=== PATIENT | male | born 1995 ===

== ENCOUNTER 2018-04-23 15:46 | Emergency (ER) | payer OTHER ==
[2018-04-23 15:52] VITALS: BP 147/90; PULSE 84; RESP 16; TEMP 98.6; O2SAT 100
--- NOTE | 2018-04-23 16:26 | ED PDOC ---
HPI: Skin/Bite Injury Time Seen by Provider: 04/23/18 16:00 Chief Complaint (Nursing): Abnormal Skin Integrity Chief Complaint (Provider): Abnormal Skin Integrity History Per: Patient History/Exam Limitations: no limitations Onset/Duration Of Symptoms: Days (x 4) Current Symptoms Are (Timing): Still Present Quality Of Symptoms: Draining Additional Complaint(s): 22 year old male with a history of cystic acne presents to the ED a draining abscess on his face. Patient reports a large pimple that is warm and swollen on his face. He visited his PMD and was referred here for further evaluation due to proximity to his eye. Offers no other complaints. PMD: [facility] Past Medical History Reviewed: Historical Data, Nursing Documentation, Vital Signs Vital Signs: Last Vital Signs Temp 98.6 F 04/23/18 15:48 Pulse 84 04/23/18 15:48 Resp 16 04/23/18 15:48 BP 147/90 04/23/18 15:48 Pulse Ox 100 04/23/18 15:48 - Medical History PMH: No Chronic Diseases - Surgical History Surgical History: No Surg Hx - Family History Family History: States: Unknown Family Hx - Allergies Allergies/Adverse Reactions: Allergies Allergy/AdvReac Type Severity Reaction Status Date / Time No Known Allergies Allergy Verified 04/23/18 15:48 Review of Systems ROS Statement: Except As Marked, All Systems Reviewed And Found Negative Skin: Positive for: Other (draining abscess on face) Physical Exam - Reviewed Nursing Documentation Reviewed: Yes Vital Signs Reviewed: Yes - Physical Exam Appears: Positive for: Non-toxic, No Acute Distress Head Exam: Positive for: ATRAUMATIC, NORMAL INSPECTION, NORMOCEPHALIC Skin: Positive for: Warm (draining abscess, measured at 1.5 cm, inside left medial aspect of face with mild surrounding erythema), Dry. Negative for: Rash Eye Exam: Positive for: EOMI, PERRL Neck: Positive for: Normal, Painless ROM, Supple Cardiovascular/Chest: Positive for: Regular Rate, Rhythm Respiratory: Positive for: CNT, Normal Breath Sounds Neurologic/Psych: Positive for: Alert, Oriented (x 3). Negative for: Motor/ Sensory Deficits - ECG O2 Sat by Pulse Oximetry: 100 (RA) Pulse Ox Interpretation: Normal Medical Decision Making Medical Decision Makin:20 Wound culture sent Patient refused needle aspiration of abscess. Wound is draining well without intervention. Scribe Attestation: Documented by Lexie Foley, acting as a scribe for Angel Schneider PA-C Provider Scribe Attestation: All medical record entries made by the Scribe were at my direction and personally dictated by me. I have reviewed the chart and agree that the record accurately reflects my personal performance of the history, physical exam, medical decision making, and the department course for this patient. I have also personally directed, reviewed, and agree with the discharge instructions and disposition. Disposition - Clinical Impression Clinical Impression: Abscess - Patient ED Disposition Is Patient to be Admitted: No - Disposition Disposition: Routine/Home Disposition Time: 16:35 Condition: IMPROVED
== END 2018-04-23 16:39 | disposition home or self-care (01) ==
LOC: H.ER 15:46
DX: L02.01 Cutaneous abscess of face (principal)